=== PATIENT | female | born 1955 | race Caucasian/White ===

== ENCOUNTER 2017-03-18 08:35 | Emergency (ER) | payer BC ==
[~2017-03-18] VITALS: Ht 157.5 cm; Wt 53.0 kg
[~2017-03-18 08:35] MED LIST: AMLO2.5T PO; PROT40TA PO
[2017-03-18 08:46] VITALS: BP 169/92; PULSE 91; RESP 18; TEMP 97.8; O2SAT 98
[2017-03-18] MEDS ORDERED: RANI150T PO (08:53)
[2017-03-18] MEDS ORDERED: AMLO2.5T PO (08:53)
[2017-03-18] MEDS ORDERED: SODIUM CHLORIDE 0.9% FLUSH 10 ML FLUSH IVF PRN (09:15)
--- NOTE | 2017-03-18 09:15 | PD ---
HPI Chief Complaint: Cardiac Complaint Time Seen by Provider: 09:14 Travel History International Travel<30 days: No Contact w/Intl Traveler<30days: No Traveled to known affect area: No History of Present Illness HPI 61-year-old female came to the emergency room with history of vague complains but mainly in the form of headache, dizziness and some palpitations. Patient says that she has had these symptoms for past 1 week. She had gone to [place] and she had to go to the emergency room. She was told that this was probably because of altitude sickness. She was asked her to descend. Patient says the symptoms went away after that. But then this morning when she woke up she started getting some headache and the dizziness. She went to drink some coffee and started getting palpitations which almost made her pass out. She called 911 and was brought to the emergency room. The quality assurance monitor body shows occasional PVCs but vital signs are stable. Currently no chest pain. She has history of hypertension and takes medication for that. No unilateral weakness or tingling or numbness. [facility] Past Medical History Narrative Medical List of her past medical, surgical, social and family history is reviewed from the nursing note. Hypertension: Yes Past Surgical History Cholecystectomy: Yes Hysterectomy: Yes Neurologic Surgery: Yes (back) Social History Alcohol Use: Yes Tobacco Use: No Substance Use: No Allergies-Medications (Allergen,Severity, Reaction): Coded Allergies: Prednisone (Verified Adverse Reaction, Severe, PANIC ATTACK, 09/13/15) Comments List of her allergies reviewed from the nursing note. Reported Meds & Prescriptions Reported Meds & Active Scripts Active Reported Ranitidine (Ranitidine HCl) 150 Mg Tab 150 Mg PO BID Amlodipine (Amlodipine Besylate) 2.5 Mg Tab 2.5 Mg PO DAILY Narrative Medication List of her home medications reviewed from the nursing note. Review of Systems Except as stated in HPI: all other systems reviewed are Neg Physical Exam Narrative GENERAL: Awake, alert, anxious, no obvious distress SKIN: Focused skin assessment warm/dry. HEAD: Atraumatic. Normocephalic. EYES: Pupils equal and round. No scleral icterus. No injection or drainage. ENT: No nasal bleeding or discharge. Mucous membranes pink and moist. NECK: Trachea midline. No JVD. CARDIOVASCULAR: Regular rate and rhythm. No murmur appreciated. RESPIRATORY: No accessory muscle use. Clear to auscultation. Breath sounds equal bilaterally. GASTROINTESTINAL: Abdomen soft, non-tender, nondistended. Hepatic and splenic margins not palpable. MUSCULOSKELETAL: No obvious deformities. No clubbing. No cyanosis. No edema. NEUROLOGICAL: Awake and alert. No obvious cranial nerve deficits. Motor grossly within normal limits. Normal speech. No issues with finger-nose test or [id number] test. PSYCHIATRIC: Appropriate mood and affect; insight and judgment normal. Data Data Last Documented VS Vital Signs Date Time Temp Pulse Resp B/P Pulse Ox O2 Delivery O2 Flow Rate FiO2 03/18/17 09:31 169/92 177/83 03/18/17 09:31 99 Nasal Cannula 2 03/18/17 08:46 97.8 91 18 Orders Electrocardiogram (03/18/17:15) Basic Metabolic Panel (Bmp) (03/18/17 09:15) Ckmb (Isoenzyme) Profile (03/18/17 09:15) Complete Blood Count With Diff (03/18/17:15) Magnesium (Mg) (03/18/17:15) Act Partial Throm Time (Ptt) (03/18/17:15) Troponin I (03/18/17:15) Chest, Single Ap (03/18/17:15) Ecg Monitoring (03/18/17:15) Bilateral Bp Monitoring (03/18/17:15) Iv Access Insert/Monitor (03/18/17:15) Oximetry (03/18/17:15) Oxygen Administration (03/18/17:15) Sodium Chloride 0.9% Flush (Ns Flush) (03/18/17:15) Ondansetron Inj (Zofran Inj) (03/18/17 09:30) Ondansetron Inj (Zofran Inj) (03/18/17 09:20) Ct Brain W/O Iv Contrast(Rout) (03/18/17 ) Potassium Chloride Eff (K-Lyte Cl Eff) (03/18/17 10:00) CKMB (03/18/17 09:00) CKMB% (03/18/17 09:00) Labs Laboratory Tests Test 03/18/17 09:00 White Blood Count 13.7 TH/MM3 Red Blood Count 4.77 MIL/MM3 Hemoglobin 14.8 GM/DL Hematocrit 45.2 % Mean Corpuscular Volume 94.9 FL Mean Corpuscular Hemoglobin 31.0 PG Mean Corpuscular Hemoglobin 32.6 % Concent Red Cell Distribution Width 12.7 % Platelet Count 263 TH/MM3 Mean Platelet Volume 8.7 FL Neutrophils (%) (Auto) 79.6 % Lymphocytes (%) (Auto) 13.4 % Monocytes (%) (Auto) 6.6 % Eosinophils (%) (Auto) 0.2 % Basophils (%) (Auto) 0.2 % Neutrophils # (Auto) 10.9 TH/MM3 Lymphocytes # (Auto) 1.8 TH/MM3 Monocytes # (Auto) 0.9 TH/MM3 Eosinophils # (Auto) 0.0 TH/MM3 Basophils # (Auto) 0.0 TH/MM3 CBC Comment DIFF FINAL Differential Comment Activated Partial 27.0 SEC Thromboplast Time Sodium Level 136 MEQ/L Potassium Level 3.4 MEQ/L Chloride Level 102 MEQ/L Carbon Dioxide Level 25.4 MEQ/L Anion Gap 9 MEQ/L Blood Urea Nitrogen 8 MG/DL Creatinine 0.66 MG/DL Estimat Glomerular Filtration 91 ML/MIN Rate Random Glucose 127 MG/DL Calcium Level 9.0 MG/DL Magnesium Level 1.9 MG/DL Total Creatine Kinase 118 U/L Creatine Kinase MB 1.5 NG/ML Troponin I LESS THAN 0.02 NG/ML MDM Medical Decision Making Medical Screen Exam Complete: Yes Emergency Medical Condition: Yes Medical Record Reviewed: Yes Interpretation(s) Twelve-lead EKG was reviewed by me. Normal sinus rhythm, normal axis, nonspecific ST-T wave changes. Heart rate of 78 bpm. Differential Diagnosis Electrolyte abnormality, dehydration Narrative Course 10:42 AM blood test results and CAT scan are within normal limit. At this point I am unsure what to make of her symptoms. I told her as such and I recommended her to follow up with her primary care. If the symptoms continue her primary care should refer her to a neurologist. Patient will be discharged home. Diagnosis Primary Impression: Dizziness Additional Impression: Headache Qualified Code: R51 - Nonintractable headache, unspecified chronicity pattern , unspecified headache type Referrals: Primary Care Physician Additional Instructions: Please follow-up with your primary care. If the symptoms continue have your primary care refer you to a neurologist and nurse chemical dependency. Return to the ER if the condition worsens or any other new concerns. Disposition: 01 DISCHARGE HOME Condition: Stable Cynthia Borrero MD Mar 18, 2017 09:15 Cynthia Borrero MD Mar 18, 2017 09:15
[2017-03-18] MEDS ORDERED: ONDANSETRON HCL 4 MG/2 ML VIAL ONE (09:20)
[2017-03-18] MEDS ORDERED: ONDANSETRON HCL 4 MG/2 ML VIAL IV PUSH ONE (09:30)
[2017-03-18 09:31] VITALS: BP_SYST 169; BP_SYST 177; BP_DIAS 83; BP_DIAS 92
[2017-03-18 09:42] LABS: AUTOMATED NEUTROPHIL # 10.9 TH/MM3 (1.8-7.7); BASOPHIL % 0.2 % (0.0-2.0); EOSINOPHIL % 0.2 % (0.0-4.0); HEMATOCRIT 45.2 % (35.0-46.0); HEMO FLAGS DIFF FINAL; LYMPH % 13.4 % (9.0-44.0); LYMPHOCYTE # 1.8 TH/MM3 (1.0-4.8); MEAN CELL VOLUME 94.9 FL (80.0-100.0); MEAN CORPUSCULAR HGB CONC 32.6 % (32.0-36.0); MONO % 6.6 % (0.0-8.0); NEUT % 79.6 % (16.0-70.0); PLATELET COUNT 263 TH/MM3 (150-450); RED BLOOD COUNT 4.77 MIL/MM3 (4.00-5.30); RED CELL DISTRIBUTION WIDTH 12.7 % (11.6-17.2); WHITE BLOOD COUNT 13.7 TH/MM3 (4.0-11.0)
[2017-03-18 09:57] LABS: ANION GAP 9 MEQ/L (5-15); BICARBONATE 25.4 MEQ/L (21.0-32.0); BLOOD UREA NITROGEN 8 MG/DL (7-18); CHLORIDE 102 MEQ/L (98-107); GLOMERULAR FILTRATION RATE 91 ML/MIN (>89); MAGNESIUM 1.9 MG/DL (1.5-2.5); POTASSIUM 3.4 MEQ/L (3.5-5.1); SODIUM (NA) 136 MEQ/L (136-145)
[2017-03-18] MEDS ORDERED: POTASSIUM CHLORIDE 25 MEQ EFFERVESCENT TAB PO ONE (10:00)
[2017-03-18 10:01] LABS: CREATINE KINASE 118 U/L (26-192)
--- NOTE | 2017-03-18 10:06 | RADRPT ---
EXAM DATE/TIME: 03/18/2017 09:23 [facility] COMPARISON: No previous studies available for comparison. INDICATIONS : Chest pressure and tightness midsternal, dizziness, and weakness. MEDICAL HISTORY : None. SURGICAL HISTORY : None. ENCOUNTER: Initial ACUITY: 1 day PAIN SCORE: 0/10 LOCATION: Bilateral chest FINDINGS: The pulmonary parenchyma is clear. The heart is normal in size. Mediastinal contours are within muriel l limits. Note is made of an enchondroma in the left proximal humerus. CONCLUSION: 1. No acute cardiopulmonary findings identified. Carlos Mock MD on March 18, 2017 at 10:04 Board Certified Radiologist. This report was verified electronically.
[2017-03-18 10:14] LABS: CKMB 1.5 NG/ML (0.5-3.6)
--- NOTE | 2017-03-18 10:29 | RADRPT ---
EXAM DATE/TIME: 03/18/2017 09:53 [facility] COMPARISON: No previous studies available for comparison. INDICATIONS : Syncope, nausea, vomiting, chest pain RADIATION DOSE: 31.43 CTDIvol (mGy) MEDICAL HISTORY : Hypertension. SURGICAL HISTORY : Cholecystectomy. Hysterectomy. ENCOUNTER: Initial ACUITY: 1 day PAIN SCALE: 0/10 LOCATION: cranial TECHNIQUE: Multiple contiguous axial images were obtained of the head. Using automated exposure control and adj ustment of the mA and/or kV according to patient size, radiation dose was kept as low as reasonably a chievable to obtain optimal diagnostic quality images. DICOM format image data is available electro nically for review and comparison. FINDINGS: CEREBRUM: The ventricles are normal for age. No evidence of midline shift, mass lesion, hemorrhage or acute in farction. No extra-axial fluid collections are seen. POSTERIOR FOSSA: The cerebellum and brainstem are intact. The 4th ventricle is midline. The cerebellopontine angle i s unremarkable. EXTRACRANIAL: The visualized portion of the orbits is intact. SKULL: The calvaria is intact. No evidence of skull fracture. CONCLUSION: Normal examination. Wade Robb Jr., MD on March 18, 2017 at 10:26 Board Certified Radiologist. This report was verified electronically.
--- NOTE | 2017-03-18 11:39 | EKG ---
Date Performed: 03/18/2017 Time Performed: 09:08:02 PTAGE: 61 years EKG: Sinus rhythm NORMAL ECG NO PREVIOUS TRACING DOCTOR: Shin Haynes Interpretating Date/Time 03/18/2017 11:37:22
== END 2017-03-18 11:59 | disposition home or self-care (01) ==
LOC: NEPE 08:35
DX: R42 Dizziness and giddiness (principal); R51 Headache; R00.2 Palpitations; I10 Essential (primary) hypertension; Z79.899 Other long term (current) drug therapy
CPT/HCPCS: 70450; 71010; 80048; 82550; 82552; 83735; 84484; 85025; 85730; 93005; 96374; 99285; J2405